=== PATIENT | female | born 1985 | race Native Hawaiian/Other Pacific Islander ===

== ENCOUNTER → 2023-11-27 11:17 | Outpatient (REF) | payer OTHER, SELFPAY ==
[2023-11-27 12:37] LABS: Urine Albumin Negative (Neg - Trace); Urine Bilirubin Negative (Negative); Urine Character Clear (Clear); Urine Color Yellow; Urine Glucose Negative (Negative); Urine Ketone Negative (Negative); Urine Leukocyte Negative (Negative); Urine Nitrite Negative (Negative); Urine Occult Blood Negative (Negative); Urine Specific Gravity 1.005 (<1.030); Urine Urobilinogen Negative (Neg - 1+)
[2023-11-27 12:52] LABS: % Eosinophils 5.2 % (0-6); % Immature Granulocytes 0.2 % (0-0.5); % Lymphocytes 38.9 % (20.5-51.1); % Monocytes 6.9 % (1.7-9.3); % Neutrophils 47.8 % (42.2-75.2); Absolute Basophils 0.1 10^3/uL (0-0.2); Absolute Eosinophils 0.3 10^3/uL (0-0.7); Absolute Lymphocytes 1.9 10^3/uL (1.2-3.4); Absolute Monocytes 0.3 10^3/uL (0.1-0.6); Absolute Neutrophils 2.3 10^3/uL (1.4-6.5); Hematocrit 25.8 % (37.0-47.0); Hemoglobin 7.4 g/dL (12.0-16.0); Mean Corp Hgb Conc. 28.7 g/dL (33.0-37.0); Mean Corpuscular Hgb 16.2 pg (27.0-31.0); Mean Corpuscular Volume 56.6 fL (81.0-99.0); Nucleated Red Blood Cells % 0 %; Platelet Count 401 10^3/uL (130-400); Red Blood Cell Count 4.56 10^6/uL (4.20-5.40); Red Cell Dist. Width 21.9 % (11.5-14.5); White Blood Cell Count 4.8 10^3/uL (4.8-10.8)
[2023-11-27 13:44] LABS: Erythrocyte Sed Rate 28 mm/hour (0-20)
[2023-11-27 13:45] LABS: ALT (SGPT) 21 U/L (0-35); AST (SGOT) 28 U/L (14-36); Albumin 5.1 g/dl (3.5-5.0); Alkaline Phosphatase 79 U/L (38-126); Blood Urea Nitrogen 10 mg/dl (7-17); Calcium 9.9 mg/dl (8.4-10.2); Carbon Dioxide 23 mmol/L (22-30); Chloride 104 mmol/L (98-107); Glucose 95 mg/dl (70-99); HDL Cholesterol 70 mg/dl; LDL Cholesterol, Calculated 81 mg/dl; Potassium 4.3 mmol/L (3.5-5.1); Sodium 139 mmol/L (135-145); Total Bilirubin 0.5 mg/dl (0.2-1.3); Total Cholesterol 170 mg/dl (50-199); Total Protein 8.4 g/dl (6.3-8.2); Triglyceride 98 mg/dl (10-149); Very Low Density Lipoprotein 19 mg/dl (0-30); eGFR > 60.00
[2023-11-27 14:03] LABS: Vitamin D, 25-OH*** 26.5 ng/mL (30-80)
[2023-11-27 14:05] LABS: Uric Acid 3.6 mg/dl (2.5-6.2)
[2023-11-27 14:32] LABS: Glycohemoglobin (HgbA1c) 5.3 % (4.0-5.6)
[2023-11-27 14:35] LABS: Vitamin B12 879 pg/ml (239-931)
[2023-11-27 14:59] LABS: Anisocytosis 2+; Hypochromasia 2+
[2023-11-27 15:02] LABS: Ovalocytes 1+; Target Cells 1+
[2023-11-27 15:03] LABS: Poikilocytosis 1+
[2023-11-27 15:04] LABS: Acanthocytes Occasional
[2023-11-27 15:08] LABS: Normal RBC Morphology No
[2023-11-28 13:06] LABS: CRP, Highly Sensitive < 0.34 mg/L
== END ==
LOC: CLINIC 11:17
PROVIDERS: ATTENDING PHYSICIAN Nurse Practitioner Acute Care
DX: Z00.00 Encounter for general adult medical examination without abnormal findings (principal)
CPT/HCPCS: 36415; 80053; 80061; 81003; 82306; 82607; 83036; 84443; 84550; 85025; 85652; 86038; 86141; 86430

== ENCOUNTER → 2023-11-28 10:16 | Outpatient (REF) | payer OTHER, SELFPAY ==
[2023-11-28 11:13] LABS: % Basophils 0.9 % (0-2); % Eosinophils 5.6 % (0-6); % Immature Granulocytes 0.2 % (0-0.5); % Lymphocytes 36.9 % (20.5-51.1); % Monocytes 5.9 % (1.7-9.3); % Neutrophils 50.5 % (42.2-75.2); Absolute Basophils 0.1 10^3/uL (0-0.2); Absolute Eosinophils 0.3 10^3/uL (0-0.7); Absolute Lymphocytes 2.1 10^3/uL (1.2-3.4); Absolute Monocytes 0.3 10^3/uL (0.1-0.6); Absolute Neutrophils 2.9 10^3/uL (1.4-6.5); Hematocrit 27.7 % (37.0-47.0); Hemoglobin 7.9 g/dL (12.0-16.0); Mean Corp Hgb Conc. 28.5 g/dL (33.0-37.0); Mean Corpuscular Hgb 16.4 pg (27.0-31.0); Mean Corpuscular Volume 57.5 fL (81.0-99.0); Nucleated Red Blood Cells % 0 %; Platelet Count 408 10^3/uL (130-400); Red Blood Cell Count 4.82 10^6/uL (4.20-5.40); Red Cell Dist. Width 21.7 % (11.5-14.5); White Blood Cell Count 5.7 10^3/uL (4.8-10.8)
== END ==
LOC: REG 10:16
PROVIDERS: ATTENDING PHYSICIAN Nurse Practitioner Acute Care
DX: D64.9 Anemia, unspecified (principal)
CPT/HCPCS: 36415; 85025

== ENCOUNTER → 2023-12-12 09:42 | Outpatient (REF) | payer OTHER, SELFPAY ==
[2023-12-12 11:09] LABS: Hematocrit 31.5 % (37.0-47.0); Hemoglobin 9.3 g/dL (12.0-16.0)
[2023-12-12 13:41] LABS: Iron < 20 ug/dl (37-170)
[2023-12-12 13:53] LABS: Ferritin 15.9 ng/ml (6.24-137)
[2023-12-14 01:43] LABS: Transferrin 364 mg/dL (200-360)
== END ==
LOC: CLINIC 09:42
PROVIDERS: ATTENDING PHYSICIAN Nurse Practitioner Acute Care
DX: D64.9 Anemia, unspecified (principal)
CPT/HCPCS: 36415; 82728; 83540; 84466; 85014; 85018